=== PATIENT | male | born 1945 | race Caucasian/White ===

== ENCOUNTER 2022-09-01 13:01 | Outpatient (AMB) | payer MEDICARE, SELFPAY ==
[2022-09-01 13:26] VITALS: BP 128/60; PULSE 66; O2SAT 99; BMI 26.9
--- NOTE | 2022-09-01 13:26 | A.OFFVIS_ITS ---
Intake Vital Signs 09/01/22 13:26 Height 5 ft 6 in Weight 166 lb 7.184 oz BMI 26.9 BP 128/60 Blood Pressure Location Lt brachial Position Sitting Pulse 66 Pulse Source Pulse Oximeter Pulse Oximetry (%) 99 Oxygen Delivery Method Room Air Intake Visit Reasons: Abnormal CT Chest Insurance Representative Required: No Allergies mepolizumab [From Nucala] Allergy (Severe, Verified 09/01/22 13:29) Shingles HPI HPI Comments History of Present Illness Details The patient is here for a pulmonary evaluation. The patient is a 77-year-old gentleman with a previous history of eosinophilic granulomatosis with polyangiitis, initially was diagnosed at [facility] he was admitted to the hospital. Not clear if he had a biopsy proving condition. The patient was placed on prednisone responded very well. He can on long-term prednisone since then. His electronic health records specialist retired and now he was re-evaluated by Pulmonary. He did have a CT scan of the chest sometime in 2019 and then a repeat CT scan in 2022. The patient does have evidence of pulmonary fibrosis and no evidence of any pneumonitis. This is based on the report will look at the CT scans myself as well once they are available. He has been maintained on prednisone 15 mg alternating with 10 mg every other day. This dose has been the lowest dose that he has been on. Once he cuts down he typically develops multiple elements from the cutting down the prednisone. She was recommended to stop the prednisone altogether. He had reserve a shins without because is been on it for years. The patient came in to be evaluated for that reason. During our visit the patient did have a is walking oximetry he did very good maintaining a pulse ox of 98%. [facility] Medical History (Updated 09/01/22 @ 23:15 by Johnson Willingham MD) ILD (interstitial lung disease) Pulmonary fibrosis Steroid dependence Social History (Updated 09/01/22 @ 13:33 by DAKOTA Hinds) Patient Tobacco Use Status: Former Tobacco user Tobacco use type: Cigar Years Smoked: 10 Years Review of Systems Const Denies fatigue, Denies fever(s) and Denies headache(s) Eyes Reports change in vision ENT Denies headache(s) Card Denies chest pain and Denies dyspnea on exertion Resp Denies dyspnea on exertion and Denies wheezing GI Reports no additional complaints Musc Reports myalgias Skin/Breast Denies rash Neuro Denies headache(s) Endo Denies fatigue Juan/Lymph Denies easy bleeding and Denies easy bruising Aller/Immun Denies wheezing Physical Exam Vital Signs: Last Vital Signs Pulse 66 09/01/22 13:26 BP 128/60 09/01/22 13:26 Pulse Ox 99 09/01/22 13:26 Oxygen Delivery Method Room Air 09/01/22 13:26 BMI result Body Mass Index 26.9 Const General: comfortable HEENT Head: Yes normal to inspection Neck Neck: Yes supple Chest Chest palpation & inspection: normal inspection of the chest Resp Effort & Inspection: normal respiratory effort Auscultation: rales bilateral at the base and diminished lung sounds Cardio Rate: regular rate Rhythm: regular rhythm Heart sounds: S1 normal heart sound present and S2 normal heart sound present GI Palpation (GI): Soft to palpation Skin General skin exam: no rashes or lesions noted Extrem General: Yes no clubbing, cyanosis or edema Assessment & Plan Assessment & Plan (1) ILD (interstitial lung disease): Code(s): J84.9 - Interstitial pulmonary disease, unspecified (2) Pulmonary fibrosis: Code(s): J84.10 - Pulmonary fibrosis, unspecified (3) Steroid dependence: Code(s): F19.20 - Other psychoactive substance dependence, uncomplicated Plan Will slowly taper prednisone down to 10mg daily DAVID as needed PFTs Will need to review recent CT chest from [facility] F/U 2-3 months Medications: New prednisone 4 mg (4 x 1 mg) PO DAILY 30 days 120 tabs 6RF Coding Level of Care Code New Pt Level 4 (53131) Diagnoses ILD (interstitial lung disease) J84.9 Pulmonary fibrosis J84.10 Steroid dependence F19.20 Time Spent (min) 40
== END 2022-09-01 14:04 | disposition home or self-care (01) ==
PROVIDERS: PCP Internal Medicine; Visit Provider Hospitalist
DX: J84.9 Interstitial pulmonary disease, unspecified (principal); J84.10 Pulmonary fibrosis, unspecified; F19.20 Other psychoactive substance dependence, uncomplicated
CPT/HCPCS: 99204

== ENCOUNTER → 2022-09-01 13:01 | Outpatient (BNVA) | payer MEDICARE, SELFPAY | PROVIDERS: PCP Internal Medicine; Visit Provider Hospitalist | DX: J84.9 Interstitial pulmonary disease, unspecified (principal); J84.10 Pulmonary fibrosis, unspecified; F19.20 Other psychoactive substance dependence, uncomplicated | CPT/HCPCS: 99202 ==

== ENCOUNTER 2022-10-17 12:55 | Outpatient (REF) | payer MEDICARE, SELFPAY ==
--- NOTE | 2022-10-17 | PFT_ITS ---
INDICATION: Dyspnea, question interstitial lung disease. SPIROMETRY: FEV1 to FVC of 77% with an FEV1 of 1.93 L, which is 78% predicted and an FVC of 2.49 L, which is 72% predicted. No significant response to bronchodilators noted. Maximum voluntary ventilation 69% predicted. LUNG VOLUMES: Total lung capacity 67% predicted with an expiratory reserve volume of 25% predicted. DIFFUSION CAPACITY: DLCO of 59% predicted. COMPARISONS: None. INTERPRETATION: No obstructive ventilatory defects. No significant response to bronchodilators noted. There is a mild decrease in maximum voluntary ventilation secondary to likely deconditioning, although cannot rule out neuromuscular conditions. Lung volumes do demonstrate a restrictive ventilatory defect consistent with mild restrictive lung disease. This could be secondary to underlying neuromuscular conditions and/or parenchymal lung conditions. There is a mild to moderate diffusion impairment as well. Clinical correlation warranted. MD OSMAN Tolentino/MODL / [phone]
== END 2022-10-17 12:56 | disposition home or self-care (01) ==
LOC: HO.RESP 12:55
PROVIDERS: PCP Internal Medicine; Visit Provider Hospitalist
DX: R06.00 Dyspnea, unspecified (principal)
CPT/HCPCS: 94010; 94727; 94729

== ENCOUNTER → 2022-10-17 13:15 | Outpatient (BNV) | payer MEDICARE, SELFPAY | PROVIDERS: PCP Internal Medicine; Visit Provider Hospitalist | DX: R06.09 Other forms of dyspnea (principal) | CPT/HCPCS: 94060; 94727; 94729 ==

== ENCOUNTER 2022-11-25 10:49 | Outpatient (AMB) | payer MEDICARE, SELFPAY ==
--- NOTE | 2022-11-25 11:06 | A.OFFVIS_ITS ---
Intake Vital Signs 11/25/22 11:08 Height 5 ft 6 in Weight 165 lb BMI 26.6 BP 128/60 Blood Pressure Location Lt brachial Position Sitting Pulse 75 Pulse Source Pulse Oximeter Pulse Oximetry (%) 98 Oxygen Delivery Method Room Air Intake Visit Reasons: Abnormal CT Chest Weight Analyst Required: No Allergies mepolizumab [From Nucala] Allergy (Severe, Verified 11/25/22 11:10) Shingles HPI HPI Comments History of Present Illness Details The patient is a 77-year-old gentleman with a previous history of eosinophilic granulomatosis with polyangiitis, initially was diagnosed at [facility] he was admitted to the hospital. Not clear if he had a biopsy proving condition. The patient was placed on prednisone responded very well. He can on long-term prednisone since then. His venue manager retired and now he was re-evaluated by Pulmonary. He did have a CT scan of the chest sometime in 2019 and then a repeat [address] scan in 2022. The patient does have evidence of pulmonary fibrosis and no evidence of any pneumonitis. This is based on the report will look at the CT scans myself as well once they are available. He has been maintained on prednisone 15 mg alternating with 10 mg every other day. This dose has been the lowest dose that he has been on. Once he cuts down he typically develops multiple elements from the cutting down the prednisone. She was recommended to stop the prednisone altogether. He had reserve a shins without because is been on it for years. The patient came in to be evaluated for that reason. During our visit the patient did have a is walking oximetry he did very good maintaining a pulse ox of 98%. 11/25/2022 the patient is here for a pulm onary follow-up visit. Overall the patient has been doing well. He did try to cut down the prednisone below 15 down to 10 mg daily. But, he became very symptomatic and could not tolerated. Therefore I did switch him to a higher dose. He did well on the 15 mg alternating with 10 mg. Therefore he can continue with that plan. At some point he can also consider 12.5 mg daily. His lungs the patient does not require up to 20 mg we can avoid steroid sparing agents. The patient will follow up with his primary care doctor regarding bone density testing. The patient already likely has a component of secondary adrenal insufficiency making it very likely that he needs to stay on the prednisone. We did review his pulmonary function studies. He does have a [id number] restrictive process due to the interstitial lung disease. This is worse than when he had a PFT back in 2019. We also did look is CT scan that he had back over the summer of 2022 demonstrating reticular changes and scarring primarily around the periphery of the lungs and also at the bases. No evidence of any pneumonitis which is reassuring. He needs to start exercising more regularly. We did talk about that. The patient will continue with current respiratory regimen will follow-up sometime in June 2023. Illicit some new symptoms arise he can always call for an earlier assessment. [facility] Medical History (Updated 09/01/22 @ 23:15 by Johnson Willingham MD) Steroid dependence Pulmonary fibrosis ILD (interstitial lung disease) Social History (Updated 09/01/22 @ 13:33 by DAKOTA Hinds) Patient Tobacco Use Status: Former Tobacco user Tobacco use type: Cigar Years Smoked: 10 Years Review of Systems Const Denies fatigue, Denies fever(s) and Denies headache(s) Eyes Reports change in vision ENT Denies headache(s) Card Denies chest pain and Denies dyspnea on exertion Resp Denies dyspnea on exertion and Denies wheezing GI Reports no additional complaints Musc Reports myalgias Skin/Breast Denies rash Neuro Denies headache(s) Endo Denies fatigue Juan/Lymph Denies easy bleeding and Denies easy bruising Aller/Immun Denies wheezing Physical Exam Vital Signs: Last Vital Signs Pulse 75 11/25/22 11:08 BP 128/60 11/25/22 11:08 Pulse Ox 98 11/25/22 11:08 Oxygen Delivery Method Room Air 11/25/22 11:08 BMI result Body Mass Index 26.6 Const General: comfortable HEENT Head: Yes normal to inspection Neck Neck: Yes supple Chest Chest palpation & inspection: normal inspection of the chest Resp Effort & Inspection: normal respiratory effort and pursed lip breathing Auscultation: rales bilateral at the base and diminished lung sounds Cardio Rate: regular rate Rhythm: regular rhythm Heart sounds: S1 normal heart sound present and S2 normal heart sound present GI Palpation (GI): Soft to palpation Skin General skin exam: no rashes or lesions noted Extrem General: Yes no clubbing, cyanosis or edema Assessment & Plan Assessment & Plan (1) ILD (interstitial lung disease): Code(s): J84.9 - Interstitial pulmonary disease, unspecified (2) Pulmonary fibrosis: Code(s): J84.10 - Pulmonary fibrosis, unspecified (3) Steroid dependence: Code(s): F19.20 - Other psychoactive substance dependence, uncomplicated Plan continue alternating 15mg/10mg Prednisone. Consider 12.5mg daily DAVID as needed Start on line pulmonary rehab Bone density test as per PCP F/U 6-8 months Medications: New prednisone 15 mg (3 x 5 mg) PO DAILY 30 days 90 tabs 11RF Coding Level of Care Code Est Pt Level 4 (64981) Diagnoses ILD (interstitial lung disease) J84.9 Pulmonary fibrosis J84.10 Steroid dependence F19.20 Time Spent (min) 18
[2022-11-25 11:08] VITALS: BP 128/60; PULSE 75; O2SAT 98; BMI 26.6
== END 2022-11-25 11:41 | disposition home or self-care (01) ==
PROVIDERS: PCP Internal Medicine; Visit Provider Hospitalist
DX: J84.9 Interstitial pulmonary disease, unspecified (principal); J84.10 Pulmonary fibrosis, unspecified; F19.20 Other psychoactive substance dependence, uncomplicated
CPT/HCPCS: 99214

== ENCOUNTER → 2022-11-25 10:49 | Outpatient (BNVA) | payer MEDICARE, SELFPAY | PROVIDERS: PCP Internal Medicine; Visit Provider Hospitalist | DX: J84.10 Pulmonary fibrosis, unspecified (principal); F19.20 Other psychoactive substance dependence, uncomplicated | CPT/HCPCS: 99212 ==

== ENCOUNTER 2024-04-15 12:54 | Outpatient (AMB) | payer MEDICARE, SELFPAY ==
[2024-04-15 13:16] VITALS: BP 120/72; PULSE 81; O2SAT 100
--- NOTE | 2024-04-15 13:16 | MHC.OFFVIS ---
Vital Signs 04/15/24 13:16 Height 5 ft 6 in BMI Reason not done Patient refused/unable BP 120/72 Blood Pressure Location Rt brachial Position Sitting Pulse 81 Pulse Source Pulse Oximeter Pulse Oximetry (%) 100 Oxygen Delivery Method Room Air Intake Visit Reasons: dyspnea Allergies mepolizumab [From Nucala] Allergy (Severe, Verified 04/15/24 13:19) Shingles HPI Comments Details: The patient is a 78-year-old gentleman with a previous history of eosinophilic granulomatosis with polyangiitis, initially was diagnosed at [facility] he was admitted to the hospital. Not clear if he had a biopsy proving condition. The patient was placed on prednisone responded very well. He can on long-term prednisone since then. His mba intern retired and now he was re-evaluated by Pulmonary. He did have a CT scan of the chest sometime in 2019 and then [address] repeat [address] scan in 2022. The patient does have evidence of pulmonary fibrosis and no evidence of any pneumonitis. This is based on the report will look at the CT scans myself as well once they are available. He has been maintained on prednisone 15 mg alternating with 10 mg every other day. This dose has been the lowest dose that he has been on. Once he cuts down he typically develops multiple elements from the cutting down the prednisone. She was recommended to stop the prednisone altogether. He had reserve a shins without because is been on it for years. The patient came in to be evaluated for that reason. During our visit the patient did have a is walking oximetry he did very good maintaining a pulse ox of 98%. 11/25/2022 the patient is here for a pulmonary follow-up visit. Overall the patient has been doing well. He did try to cut down the prednisone below 15 down to 10 mg daily. But, he became very symptomatic and could not tolerated. Therefore I did switch him to a higher dose. He did well on the 15 mg alternating with 10 mg. Therefore he can continue with that plan. At some point he can also consider 12.5 mg daily. His lungs the patient does not require up to 20 mg we can avoid steroid sparing agents. The patient will follow up with his primary care doctor regarding bone density testing. The patient already likely has a component of secondary adrenal insufficiency making it very likely that he needs to stay on the prednisone. We did review his pulmonary function studies. He does have a [id number] restrictive process due to the interstitial lung disease. This is worse than when he had a PFT back in 2019. We also did look is CT scan that he had back over the summer of 2022 demonstrating reticular changes and scarring primarily around the periphery of the lungs and also at the bases. No evidence of any pneumonitis which is reassuring. He needs to start exercising more regularly. We did talk about that. The patient will continue with current respiratory regimen will follow-up sometime in June 2023. Illicit some new symptoms arise he can always call for an earlier assessment. 04/15/2024 the patient is here for a pulmonary follow-up visit. The patient has been having significant pain issues back pain musculoskeletal discomfort. He had become significantly depressed and had been having suicidal ideations at some point. He has been upset because he would like to get some pain management. He has been taking gabapentin addition to Tylenol on a regular basis. He has also been taking the prednisone that he has use chronically for the last 15 years. We did talk about decreasing the prednisone during the last visit but he has been lost to follow-up for a couple years. She is still on 20 mg daily. Will plan to go down by 1 mg every month. Hopefully we can get him down to 18 mg for his next follow-up in a couple months. In the meantime will go ahead and increase his gabapentin. He will have chest x-rays and also back x-rays to see if there is anything that can be done. He will benefit from pain management evaluation to see if this anything new that can be provided to alleviate his discomfort. [facility] Medical History (Updated 04/17/24 @ 10:42 by Johnson Willingham MD) Back pain Steroid dependence Pulmonary fibrosis ILD (interstitial lung disease) Social History Patient Tobacco Use Status: Former Tobacco user Tobacco use type: Cigar Years Smoked: 10 Years Review of Systems Const Denies fatigue, Denies fever(s) and Denies headache(s) Eyes Reports change in vision ENT Denies headache(s) Card Denies chest pain and Denies dyspnea on exertion Resp Denies dyspnea on exertion and Denies wheezing GI Reports no additional complaints Musc Reports abnormal gait, Reports back pain, Reports myalgias and Reports radiating pain into limb Skin/Breast Denies rash Neuro Reports abnormal gait and Denies headache(s) Psych Reports depression Endo Denies fatigue Juan/Lymph Denies easy bleeding and Denies easy bruising Aller/Immun Denies wheezing Physical Exam Vital Signs: Last Vital Signs Pulse 81 04/15/24 13:16 BP 120/72 04/15/24 13:16 Pulse Ox 100 04/15/24 13:16 Oxygen Delivery Method Room Air 04/15/24 13:16 Const General: comfortable HEENT Head: Yes normal to inspection Neck Neck: Yes supple Chest Chest palpation & inspection: normal inspection of the chest Resp Effort & Inspection: normal respiratory effort Auscultation: rales bilateral at the base and diminished lung sounds Cardio Rate: regular rate Rhythm: regular rhythm Heart sounds: S1 normal heart sound present and S2 normal heart sound present GI Palpation (GI): Soft to palpation Skin General skin exam: no rashes or lesions noted Extrem General: Yes no clubbing, cyanosis or edema Assessment & Plan Assessment & Plan (1) ILD (interstitial lung disease): Code(s): J84.9 - Interstitial pulmonary disease, unspecified Category: Medical (2) Pulmonary fibrosis: Code(s): J84.10 - Pulmonary fibrosis, unspecified Category: Medical (3) Steroid dependence: Code(s): F19.20 - Other psychoactive substance dependence, uncomplicated Category: Medical (4) Back pain: Code(s): M54.9 - Dorsalgia, unspecified Category: Medical Qualifiers: Back pain location: back pain in unspecified location Chronicity: chronic Back pain laterality: unspecified Qualified Code(s): M54.9 - Dorsalgia, unspecified; G89.29 - Other chronic pain Plan continue prednisone 20mg->decrease by 1mg every 3-4 weeks Pain management referral CXR back xrays Increase Gabapentin DAVID as needed F/U 3 months Orders: Orders XR lumbar spine 2-3V 04/15/24 J84.10 - Pulmonary fibrosis, unspecified, J84.9 - Interstitial pulmonary disease, unspecified, M54.9 - Dorsalgia, unspecified XR thoracic spine 3V 04/15/24 M54.9 - Dorsalgia, unspecified XR cervical spine 2V 04/15/24 M54.9 - Dorsalgia, unspecified XR chest 2V 04/15/24 J84.9 - Interstitial pulmonary disease, unspecified Referrals Pain Management Referral M54.9 - Dorsalgia, unspecified Medications: New prednisone 4 mg (4 x 1 mg) PO DAILY 120 tabs 3RF 30 days gabapentin 600 mg (2 x 300 mg) PO TID 180 caps 5RF 30 days prednisone 15 mg (3 x 5 mg) PO DAILY 90 tabs 11RF 30 days Coding Level of Care Code Est Pt Level 4 (72146) Complex EM visit Add On G2211 Diagnoses ILD (interstitial lung disease) J84.9 Pulmonary fibrosis J84.10 Steroid dependence F19.20 Chronic back pain, unspecified back location, unspecified back pain laterality M54.9; G89.29 Back pain location: back pain in unspecified location Chronicity: chronic Back pain laterality: unspecified Time Spent (min) 17
--- OUTSIDE RECORDS SUMMARY | 2024-04-15 13:25 | XMS_ITS | Clinical Summary ---
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 Ordering Clinician Indication Dosage Frequency Signature (SIG) Comments Components calcium 1200mg vitamin d 25 mq 1200 2023-02 00:00: 00 Yes [id number] 1 TAB DAILY 1 TAB DAILY (route: BY MOUTH) Med Classific ation: ELECTROLY LEATHA/VITAM INS gabapentin 300 mg capsule 2023-02 00:00: 00 02-24 23:59 :00 No [id number] 300 capsule 3 TIMES A WEEK 300 capsule 3 TIMES A WEEK (route: oral) Med Classific ation: Central Nervous System Agents Glucosamine Chondroit Complx Advan 750 mg-100 mg-125 mg-1.65 mg tablet 2023-02 00:00: 00 02-24 23:59 :00 No [id number] 750 mg DAILY 750 mg DAILY (route: oral) Med Classific ation: Alternati ve Therapy lisinopril 2.5 mg tablet 2023-02 00:00: 00 Yes [id number] 2.5 mg DAILY 2.5 mg DAILY (route: oral) Med Classific ation: Cardiovas cular Therapy Agents montelukast 10 mg tablet 2023-02 00:00: 00 Yes [id number] 10 mg BEDTIME 10 mg BEDTIME (route: oral) Med Classific ation: Respirato ry Therapy Agents prednisone 10 mg tablet 2023-02 00:00: 00 Yes [id number] 10 mg DAILY 10 mg DAILY (route: oral) Med Classific ation: Endocrine PreserVisio n AREDS 2 Plus Multivit 200 mcg-15 mcg-5 mg-1 mg capsule 2023-02 00:00: 00 Yes [id number] 200 mcg DAILY 200 mcg DAILY (route: oral) Med Classific ation: Electroly te Balance-N utritiona l Products simvastatin 40 mg tablet 2023-02 00:00: 00 02-24 23:59 :00 No [id number] 14 mg BEDTIME 14 mg BEDTIME (route: oral) Med Classific ation: Cardiovas cular Therapy Agents terazosin 1 mg capsule 2023-02 00:00: 00 Yes [id number] 1 mg BEDTIME 1 mg BEDTIME (route: oral) Med Classific ation: Cardiovas cular Therapy Agents gabapentin 300 mg capsule 2023-02 00:00: 00 Yes [id number] 1 capsule 3 TIMES DAILY 1 capsule 3 TIMES DAILY (route: oral) Med Classific ation: Central Nervous System Agents simvastatin 40 mg tablet 2023-02 00:00: 00 Yes [id number] 1 tablet BEDTIME 1 tablet BEDTIME (route: oral) Med Classific ation: Cardiovas cular Therapy Agents Immunizations Ordered Immunization Name Filled Immunization Name Date Status Comments Refusal Reason COVID BOOSTER, COVID BOOSTER 2023-11-24 00:00:00 INFLUENZA, LAIV (LIVE VIRUS) 2023-11-24 00:00:00 Vital Signs Vital Name Observation Time Observation Value Commen ts Temperature 2024-04-11 16:02:00.000 96.4 [degF] Temperature 2024-04-06 15:57:00.000 99.2 [degF] Pulse 2024-04-11 16:02:00.000 68 /min Pulse 2024-04-06 15:57:00.000 92 /min O2 Saturation (%) 2024-04-11 16:04:00.000 98 % O2 Saturation (%) 2024-04-06 15:58:00.000 97 % Respirations 2024-04-11 16:02:00.000 18 /min Respirations 2024-04-06 15:57:00.000 22 /min Systolic Blood Pressure 2024-04-11 16:02:00.000 98 mm[ Hg] Systolic Blood Pressure 2024-04-06 16:00:00.000 102 mm [Hg] Diastolic Blood Pressure 2024-04-11 16:02:00.000 60 mm [Hg] Diastolic Blood Pressure 2024-04-06 16:00:00.000 80 mm [Hg] Plan of Treatment Planned Activity Planned Date Details Comments Future Scheduled Test SKILLED NU RSE TO EVALUATE PATIENT, IDENTIFY PRIMARY AND CO-MORBID CONDITIONS CODED PER CODING GUIDELINES, AND DEVELOP PATIENT SPECIFIC PLAN OF CARE THAT INCLUDES PATIENT GOAL FOR HOME HEALTH. [code = SKILLED NURSE TO EVALUATE PATIENT, IDENTIFY PRIMARY AND CO-MORBID CONDITIONS CODED PER CODING GUIDELINES, AND DEVELOP PATIENT SPECIFIC PLAN OF CARE THAT INCLUDES PATIENT GOAL FOR HOME HEALTH.] Future Scheduled Test SKILLED NU RSE TO O/A OF PATIENTS MENTAL/BEHAVIORAL STATUS, ASSESS VITAL SIGNS WEEKLY ALLOW 2 PRNS FOR MEDICATION MANAGEMENT. [code = SKILLED NURSE TO O/A OF PATIENTS MENTAL/BEHAVIORAL STATUS, ASSESS VITAL SIGNS WEEKLY ALLOW 2 PRNS FOR MEDICATION MANAGEMENT.] Future Scheduled Test SKILLED NU RSE FOR O/A OF GENERAL HEALTH STATUS OF PAIN, CARDIAC, RESPIRATORY, GASTROINTESTINAL, GENITOURINARY, SKIN, NEUROLOGIC, ENDOCRINE SYSTEMS TO IDENTIFY CHANGES ASSOCIATED WITH EXACERBATION FOR EARLY INTERVENTION OF COMPLICATIONS WEEKLY. [code = SKILLED NURSE FOR O/A OF GENERAL HEALTH STATUS OF PAIN, CARDIAC, RESPIRATORY, GASTROINTESTINAL, GENITOURINARY, SKIN, NEUROLOGIC, ENDOCRINE SYSTEMS TO IDENTIFY CHANGES ASSOCIATED WITH EXACERBATION FOR EARLY INTERVENTION OF COMPLICATIONS WEEKLY.] Future Scheduled Test SKILLED NU RSE FOR O/A AND SKILLED TEACHING RELATED TO MANAGEMENT OF DEPRESSIVE SYMPTOMS AND/OR DEPRESSION. SN TO REPORT SIGNIFICANT CHANGE IN DEPRESSIVE SYMPTOMS TO CLINICAL PROVIDER FOR EARLY INTERVENTION. [code = SKILLED NURSE FOR O/A AND SKILLED TEACHING RELATED TO MANAGEMENT OF DEPRESSIVE SYMPTOMS AND/OR DEPRESSION. SN TO REPORT SIGNIFICANT CHANGE IN DEPRESSIVE SYMPTOMS TO CLINICAL PROVIDER FOR EARLY INTERVENTION.] Future Scheduled Test SKILLED NU RSE FOR O/A AND SKILLED TEACHING RELATED TO ALTERED SKIN INTEGRITY . LEFT HEEL CLOSED WOUND/? PRESSURE ULCER. [code = SKILLED NURSE FOR O/A AND SKILLED TEACHING RELATED TO ALTERED SKIN INTEGRITY . LEFT HEEL CLOSED WOUND/? PRESSURE ULCER.] Future Scheduled Test SKILLED NU RSE TO REVIEW PATIENT MEDICATIONS. INSTRUCT PATIENT/CAREGIVER ON MONITORING OF EFFECTIVENESS, ADVERSE DRUG REACTIONS, SIDE EFFECTS OF ALL MEDICATIONS (PRESCRIPTION/-OTC), AND HOW AND WHEN TO REPORT PROBLEMS. [code = SKILLED NURSE TO REVIEW PATIENT MEDICATIONS. INSTRUCT PATIENT/CAREGIVER ON MONITORING OF EFFECTIVENESS, ADVERSE DRUG REACTIONS, SIDE EFFECTS OF ALL MEDICATIONS (PRESCRIPTION/-OTC), AND HOW AND WHEN TO REPORT PROBLEMS.] Future Scheduled Test SKILLED NU RSE TO ASSESS PATIENTS PSYCHOSOCIAL STATUS TO IDENTIFY POTENTIAL ISSUES THAT MAY COMPLICATE THE PROVISION OF THE PLAN OF CARE INCLUDING THE PATIENTS ABILITY TO ACCESS COMMUNITY RESOURCES AND PSYCHOSOCIAL SUPPORT SERVICES. [code = SKILLED NURSE TO ASSESS PATIENTS PSYCHOSOCIAL STATUS TO IDENTIFY POTENTIAL ISSUES THAT MAY COMPLICATE THE PROVISION OF THE PLAN OF CARE INCLUDING THE PATIENTS ABILITY TO ACCESS COMMUNITY RESOURCES AND PSYCHOSOCIAL SUPPORT SERVICES.] Future Scheduled Test SKILLED NU RSE WILL MAINTAIN SITUATIONAL AWARENESS FOR SAFETY AND WILL NOTIFY CLINICAL TEACHER COUNSELOR AND PHYSICIAN/PROVIDER WITH ANY CHANGE IN CONDITION. [code = SKILLED NURSE WILL MAINTAIN SITUATIONAL AWARENESS FOR SAFETY AND WILL NOTIFY CLINICAL TEACHER COUNSELOR AND PHYSICIAN/PROVIDER WITH ANY CHANGE IN CONDITION.] Goal Patient Goal - NOT TO UPSET MY FAMILY Goal 2024-04-01 Patient Goal - NOT TO UPSET MY FAMILY Goal Provider Goal - A PLAN OF CARE WILL BE ESTABLISHED THAT MEETS PATIENT'S ASSISTED NEEDS AND INCLUDES PATIENT GOAL FOR HOME HEALTH. Goal Provider Goal - ALTERED MENTAL/BEHAVIORAL STATUS WILL BE IDENTIFIED PROMPTLY AND INTERVENTION INITIATED QUICKLY TO MINIMIZE ASSOCIATED RISKS THROUGHOUT CERTIFICATION PERIOD. Goal Provider Goal - CHANGE IN GENERAL HEALTH STATUS WILL BE IDENTIFIED AND REPORTED TO PHYSICIAN FOR PROMPT INTERVENTION TO MINIMIZE ASSOCIATED RISKS THROUGHOUT CERTIFICATION PERIOD. Goal Provider Goal - PATIENT WILL REMAIN SAFE WITHOUT DECOMPENSATION IN DEPRESSIVE CONDITION, WHILE MAINTAINING OPTIMAL LEVEL OF MENTAL HEALTH AND WELL BEING THROUGHOUT CERTIFICATION PERIOD. Goal Provider Goal - PATIENT/CAREGIVER WILL VERBALIZE/DEMONSTRATE UNDERSTANDING OF TEACHING RELATED TO ALTERED SKIN INTEGRITY , AT LEFT HEEL SITE, BY END OF CERTIFICATION PERIOD. Goal Provider Goal - PATIENT/CAREGIVER WILL VERBALIZE UNDERSTANDING OF EDUCATION PROVIDED ON MEDICATIONS BY THE END OF THE CERTIFICATION PERIOD. Goal Provider Goal - PSYCHOSOCIAL NEEDS WILL BE IDENTIFIED AND PLAN IMPLEMENTED TO MINIMIZE RISK THROUGHOUT CERTIFICATION PERIOD. Goal Provider Goal - PATIENT WILL REMAIN SAFE IN THE COMMUNITY AND WILL BE FREE OF DANGER TO SELF AND OTHERS THROUGHOUT THE CERTIFICATION PERIOD. Progress Notes Progress Notes <paragraph>[Visit Date: 2024 by GUIDO LAI RN]:</paragraph><paragraph>SNV NOTE 2 : PATIENT HAD FOOT DOCTOR DR SEE VISIT HIM THIS PAST THURSDAY .HE DID HAVE 2 OF HIS NAILS TRIMMED. SHE DID NOT ADDRESS ISSUES WITH WOUNDS ON RIGHT HEEL OR ON TIP OF LEFT GREAT TOE. PATIENT STATES HE IS NOT HAPPY WITH HER A DOCTOR OVERALL AND IS LOOKING TO BE SEEN ELSEWHERE. THIS NURSE WILL CALL DR. OJEDA FOR REFERRAL TO [facility] PER HIS REQUEST AND HE STATES HE WILL OBTAIN TRANSPORTATION TO HAVE WOUND LOOKED AT. REVIEWED WITH PATIENT IMPORTANCE OF NO BAREFOOT WALKING KEEPING SKIN CLEAN DRY AND INTACT AND ADEQUATE MOISTURIZING OF AREA TO AVOID CRACKS AND DRYNESS WHICH MAY LEAD TO FURTHER WOUNDS OR COMPLICATIONS. REVIEWED AND EDUCATED ON ALL MEDICATIONS ORDERED IMPORTANCE OF COMPLIANCE WITH FOR DISEASE MANAGEMENT. PATIENT HAS BEEN COMPLIANT WITH P.O. MEDS SELF MANAGED. REVIEWED SAFE LIMITS OF EXTRA STRENGTH TYLENOL. PATIENT DOES TAKE ON A REGULAR BASIS FOR ARTHRITIC PAIN DOES NOT EXCEED 3220-4008 MG DAILY.</paragraph> Encounters Start Date/Time End Date/Time Encounter Type Admission Type Attending Clinicians Care Facility Care Department Encounter ID Discharge Date Discharge Status Discharge Condition Discharge Reason Percent Goals Met 2024-02-06 00:00:00 2024-06-04 00:00:00 Outpatient RECERTIFIC ATGUIDO [facility] [id number] 44.44
--- OUTSIDE RECORDS SUMMARY | 2024-04-15 13:25 | XMS_ITS | Clinical Summary ---
Author Organization [facility], Address [address] [place] [address] [place] [address] Phone Care Team Providers Care Patient Financial Services Coordinator Name Role Phone PhilhenriMachelle Fitzpatrick DO Primary Care Pro vider Allergies No known active allergies Medications albuterol HFA (Ventolin HFA) 108 (90 Base) MCG/ACT inhaler Comments: Filled Date: Mar 14 2016 12:00AM Patient Notes: USE 2 PUFFS BY MOUTH 4 TIMES A DAY NEEDED WHEEZING Duration: 7 Active budesonide-form oterol (SYMBICORT) 160-4.5 MCG/ACT inhaler INHALE 2 PUFFS TWICE A DAY 0 Active fluticasone (FLONASE) 50 MCG/ACT nasal spray Administer 2 sprays into each nostril 1 (one) time each day 0 Active lisinopril (PRINIVIL,ZESTR IL) 2.5 MG tablet Take 2.5 mg by mouth daily 0 Active montelukast (SINGULAIR) 10 MG tablet Take 10 mg by mouth at bed time 0 Active omeprazole (PriLOSEC) [address] capsule Take 20 mg by mouth 0 Active predniSONE (DELTASONE) 5 MG tablet TAKE 3 TABLETS BY MOUTH EVERY DAY J 45.30 0 Active simvastatin (ZOCOR) 40 MG tablet Take 40 mg by mouth every night 0 Active terazosin (HYTRIN) 1 MG capsule Take 1 mg by mouth every night 0 Active alendronate (FOSAMAX) 70 MG tablet TAKE 1 TABLET BY MOUTH ONE TIME PER WEEK FOR 90 DAYS 2 Active gabapentin (NEURONTIN) 300 MG capsule Take 300 mg by mouth every night 2 Active valACYclovir (VALTREX) 1 g tablet TAKE 1 TABLET BY MOUTH THREE TIMES DAILY FOR 7 DAYS 2 Active Active Problems Problem Noted Date Diagnosed Date Hypertension 02/22/2020 Chronic kidney disease stage 3 08/22/2019 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 disease due to hypertension 08/21 Immunizations Name Administration Dates Next Due Influenza Split High Dose Preservative Free IM 0 11/01/2019 Family History Medical History Relation Comments Hypertension Father Relation Status Comments Father Mother Social History Tobacco Use Types Packs/Day Years Used Date Smoking Tobacco: Former Cigarettes Q uit: 02/23/2013 Comments:Smoking History Inf o:Every day Alcohol Use Standard Drinks/Week Comments Yes 0 (1 standard drink = 0.6 oz pure alcohol) Alcoholic Drinks/day: 1-2 drinks per day Sex and Gender Information Value Date Recorded Sex Assigned at Not on file Legal Sex Male 4:30 PM EST Gender Identity Not on file Sexual Orientation Not on file Last Filed Vital Signs Vital Sign Reading Time Taken Comments Blood Pressure 144/66 07/13/2023 2:06 PM EDT Pulse - - Temperature - - Respiratory Rate - - Oxygen Saturation - - Inhaled Oxygen Concentration - - Weight 83.9 kg (185 lb) 08/09/2018 12:00 PM EDT Height 172.7 cm (5' 8 ) 08/09/2018 12:00 PM EDT Body Mass Index 28.13 08/09/2018 12:00 PM EDT Plan of Treatment Upcoming Encounters Date Type Department Care Team (Late st Contact Info) Description 07/11/2024 2:30 PM EDT Office Visit [facility], [address] [address] Henrique Black MD [address] [place] [address] Health Maintenance Due Date Last Done Comments Pneumococcal Vaccine: 65+ Years (1 of 2 - PCV) 1951 Influenza Vaccine (#1) 2023 0, 12/24/2018, 11/08/2009, Additional history exists Hepatitis B Vaccine Aged Out No longe r eligible based on patient's age to complete this topic Insurance MEDICARE [facility] Care Teams Patient Financial Services Coordinator Relationship Specialty Start Date End Date Machelle Bueno DO PCP - General Internal Medicine 01/13/22
== END 2024-04-15 13:57 | disposition home or self-care (01) ==
PROVIDERS: PCP Internal Medicine; Visit Provider Hospitalist
DX: J84.9 Interstitial pulmonary disease, unspecified (principal); J84.10 Pulmonary fibrosis, unspecified; F19.20 Other psychoactive substance dependence, uncomplicated; M54.9 Dorsalgia, unspecified; G89.29 Other chronic pain
CPT/HCPCS: 99214; G2211

== ENCOUNTER 2024-04-15 12:54 | Outpatient (REF) | payer MEDICARE, SELFPAY ==
--- NOTE | ~2024-04-15 | XR_ITS ---
CLINICAL HISTORY: M54.9 - Dorsalgia, unspecified 3 views thoracic spine Comparison: None Findings: Normal alignment. The lower thoracic spine is poorly evaluated on the lateral views. There is degenerative disc disease in the lower thoracic spine. There is scoliosis at the thoracolumbar junction. IMPRESSION: No acute findings. Degenerative changes. Limited evaluation of the lower thoracic spine. This document has been electronically signed by: Jun Alfonso MD on 04/18/2024 13:00:13
--- NOTE | ~2024-04-15 | XR_ITS ---
CLINICAL HISTORY: M54.9 - Dorsalgia, unspecified 4 views cervical spine Comparison: None Findings: Normal vertebral body alignment. No acute fractures or dislocation. There is multilevel degenerative disc disease and uncinate joint arthropathy particularly at the C3-4 through C5-6 levels. Prevertebral soft tissues within normal limits. IMPRESSION: There is multilevel degenerative disc disease and uncinate joint arthropathy particularly at the C3-4 through C5-6 levels. This document has been electronically signed by: Jun Alfonso MD on 04/18/2024 13:00:18
--- NOTE | ~2024-04-15 | XR_ITS ---
CLINICAL HISTORY: J84.9 - Interstitial pulmonary disease, unspecified 2 view chest x-ray Comparison: None Findings: There are low lung volumes with a mildly elevated right hemidiaphragm. There is colonic interposition. Small left effusion not excluded. Normal size heart. No acute fracture. IMPRESSION: 1. Low lung volumes with mildly elevated right hemidiaphragm. 2. Can not exclude small left effusion. This document has been electronically signed by: Jun Alfonso MD on 04/18/2024 12:56:32
--- NOTE | ~2024-04-15 | XR_ITS ---
CLINICAL HISTORY: J84.9 - Interstitial pulmonary disease, unspecified 3 views lumbar spine Comparison: None Findings: Normal vertebral body alignment. No acute fractures or dislocation. There is severe multilevel degenerative disc disease and marked dextroscoliosis. IMPRESSION: There is severe multilevel degenerative disc disease and marked dextroscoliosis. This document has been electronically signed by: Jun Alfonso MD on 04/18/2024 12:59:35
--- OUTSIDE RECORDS SUMMARY | 2024-04-15 14:25 | XMS_ITS | Clinical Summary ---
Author Organization [facility], Address [address] [place] [address] [place] [address] Phone Care Team Providers Care Factorer Name Role Phone PhilhenriMachelle Fitzpatrick DO Primary [...] Visit [facility], [address] [place] [address] Henrique Black MD [address] [address] Health Maintenance Due Date Last Done Comments Pneumococcal Vaccine: 65+ Years (1 of 2 - PCV) 1951 Influenza Vaccine (#1) 2023 0, 12/24/2018, 11/08/2009, Additional history exists Hepatitis B Vaccine Aged Out No longe r eligible based on patient's age to complete this topic Insurance MEDICARE [facility] Care Teams Factorer Relationship Specialty Start Date End Date Machelle Bueno DO PCP - General Internal Medicine 01/13/22
== END 2024-04-15 12:55 | disposition home or self-care (01) ==
LOC: HO.XRAY 12:54
PROVIDERS: PCP Internal Medicine; Visit Provider Hospitalist
DX: M54.9 Dorsalgia, unspecified (principal); J84.10 Pulmonary fibrosis, unspecified; J84.9 Interstitial pulmonary disease, unspecified; G89.29 Other chronic pain; F19.20 Other psychoactive substance dependence, uncomplicated
CPT/HCPCS: 71046; 72040; 72072; 72100; 99212

== ENCOUNTER → 2024-04-15 14:01 | Outpatient (BNV) | payer MEDICARE, SELFPAY | PROVIDERS: PCP Internal Medicine; Visit Provider Radiology Diagnostic Radiology | DX: M54.9 Dorsalgia, unspecified (principal); M50.30 Other cervical disc degeneration, unspecified cervical region; M51.369 Other intervertebral disc degeneration, lumbar region without mention of lumbar back pain or lower extremity pain; J84.9 Interstitial pulmonary disease, unspecified | CPT/HCPCS: 71046; 72040; 72072; 72100 ==

== ENCOUNTER 2024-05-02 13:46 | Outpatient (AMB) | payer MEDICARE, SELFPAY ==
--- NOTE | 2024-05-02 13:48 | MHC.OFFVIS ---
Vital Signs 05/02/24 13:50 Height 5 ft 6 in BMI Reason not done Patient refused/unable BP 123/58 L Blood Pressure Location Lt brachial Position Sitting Pulse 72 Pulse Source Pulse Oximeter Intake Visit Reasons: Dorsalgia, unspecified Intake Note: Pain today sitting 0/10, standing 8/10 Manager [employer] Required: No Accompanied by: Family/Other Allergies mepolizumab [From Nucala] Allergy (Severe, Verified 05/02/24 13:52) Shingles HPI HPI Dorsalgia, unspecified: Details: The patient is a 78-year-old male with prior history of chronic low back pain, former tobacco smoker, h/o compression fractures, lumbar degenerative disc disease, arthritis, lumbar scoliosis, presenting with chronic lower back pain and bilateral lower extremity edema and non-healing ulcers with suspected vascular insufficiency. The onset of the current episode of lower back pain began a year and a half ago, though it is part of a pattern of chronic pain that has persisted for 22 years, influenced by a history of severe scoliosis discovered during adolescence. The patient has not pursued surgical intervention for scoliosis but has experienced temporary relief from prior steroidal pain management and back bracing. Imaging studies are noted below and were discussed with patient and family today. Patient has attempted physical therapy at home 3 weeks ago with minimal relief. He reports good pain relief with epidural steroid injections through [facility]. Patient reports he was previously evaluated at [facility] but was deemed non-surgical for back pain. Pain interferes with his daily activities and functioning, severely limiting mobility, requiring a walker and electric cart, negatively affecting his sleep and quality of life. Denies any fever or chills, dizziness, shortness of breaths, chest pain, bladder or bowel dysfunction or saddle anesthesia. 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 He follows at [facility] services for pulmonary fibrosis and interstitial lung disease with long history of steroid dependence. The patient's primary concerns during this visit include acute issues with bilateral lower extremity edema and non healing foot ulcers, which are significantly more prominent in the right leg, leading to a non-healing ulcer on the heel and also open wounds on his tender left big toe. The potential for underlying vascular insufficiency is being evaluated at [facility] on 05/05/24 . The likelihood of painful sensory neuropathy further complicates ambulation and daily activities. - Affect: Pain significantly impacts mobility and necessitates use of assisting devices. - Analgesia: Currently using gabapentin and Tylenol; prior temporary relief from steroid injections. - Adverse Effects: None discussed from current medications. - Activities of Daily Living: Severely limited, requiring walkers and electric cart; unable to cook and minimal standing. - Aberrant Drug-Related Behaviors: None reported. Location: Chronic back pain, severe scoliosis, bilateral foot ulcers and edema Duration: Chronic pain for >22 years, for past 1.5 years Characteristics of symptom or complaint: Sharp, aching, burning, severe, radiating Aggravating or associated factors: Walking, standing, changing positions, movements Relieving factors: Rest, sitting, cold therapy, gabapentin, Tylenol Treatment: PT, TENS unit, chiropractor, cane, wheelchair, walker [facility] Medical History (Updated 05/02/24 @ 16:04 by MARGARET Borja) Lumbar degenerative disc disease Scoliosis of thoracolumbar spine Back pain Steroid dependence Pulmonary fibrosis ILD (interstitial lung disease) Social History Alcohol intake: current Alcohol intake frequency: holidays/special occasions only Patient Tobacco Use Status: Former Tobacco user Tobacco use type: Cigar Years Smoked: 10 Years Substance Use Type: Other Substance Use Type Other:: Edibles Review of Systems Const Details: - Musculoskeletal: Reports severe back pain. - Vascular: Reports significant bilateral lower extremity swelling. - Integumentary: Reports non-healing right heel and left big toe ulcer. - Neurological: Reports numbness and sensory neuropathy symptoms. All systems reviewed & are unremarkable except as noted in HPI and below Physical Exam Vital Signs: Last Vital Signs Pulse 72 05/02/24 13:50 BP 123/58 L 05/02/24 13:50 General: Appears afebrile. Alert and oriented. Mood and affect appropriate. Follows and participates in conversation appropriately. Respiratory effort is unlabored. No cough. Able to transition from sit to stand with assistance of family member. Unable to perform lumbar ROM due to pain. Positive painful facet loading bilaterally. - Musculoskeletal- Limited mobility; difficulty standing, requires use of walker and electric cart. - Vascular- Right lower extremity more swollen than left; non-healing ulcer on heel and left big toe. - Neurological- Sensation impaired on extremities; difficulty in standing unsupported. General: Yes no CVA tenderness Back/Spine/Pelvis Back: no CVA tenderness Cervical Spine: cervical muscular tenderness, pain with cervical ROM, No Cervical spine scars present and No Cervical spine tenderness Thoracic/Lumbar Spine: thoracic and lumbar spine normal to inspection, No Thoracic/lumbar spine scar(s), Lasegue's sign positive bilateral and diffuse, pain with thoraco-lumbar ROM, paraspinal muscle tenderness, thoraco-lumbar ROM limited, No thoracic spinal tenderness and lumbar spinal tenderness (L3-S1) Pelvis: no buttock tenderness Sacroiliac joints: bilaterally nontender Results Reviewed Results Reviewed: XR cervical spine 2V 04/18/24 Comparison: None Findings: Normal vertebral body alignment. No acute fractures or dislocation. There is multilevel degenerative disc disease and uncinate joint arthropathy particularly at the C3-4 through C5-6 levels. Prevertebral soft tissues within normal limits. IMPRESSION: There is multilevel degenerative disc disease and uncinate joint arthropathy particularly at the C3-4 through C5-6 levels. 3 views thoracic spine 04/18/24 Comparison: None Findings: Normal alignment. The lower thoracic spine is poorly evaluated on the lateral views. There is degenerative disc disease in the lower thoracic spine. There is scoliosis at the thoracolumbar junction. IMPRESSION: No acute findings. Degenerative changes. Limited evaluation of the lower thoracic spine. 3 views lumbar spine 04/18/24 Comparison: None Findings: Normal vertebral body alignment. No acute fractures or dislocation. There is severe multilevel degenerative disc disease and marked dextroscoliosis. IMPRESSION: There is severe multilevel degenerative disc disease and marked dextroscoliosis. Assessment & Plan Assessment & Plan (1) Scoliosis of thoracolumbar spine: Code(s): M41.9 - Scoliosis, unspecified Category: Medical (2) Lumbar degenerative disc disease: Code(s): M51.369 - Other intervertebral disc degeneration, lumbar region without mention of lumbar back pain or lower extremity pain Category: Medical (3) Chronic low back pain: Code(s): M54.50 - Low back pain, unspecified; G89.29 - Other chronic pain Category: Medical (4) Lumbar radiculopathy: Code(s): M54.16 - Radiculopathy, lumbar region Category: Medical (5) Lumbosacral spondylosis: Code(s): M47.817 - Spondylosis without myelopathy or radiculopathy, lumbosacral region Category: Medical Plan For axial low back pain, I have proposed proceeding with diagnostic bilateral L3-L4 DR L5 MBB with local and fluoroscopy to evaluate the response in arthritis-related back pain, pending insurance preauthorization and confirmation of positive nerve block outcomes. Expectations, risks and benefits were reviewed. Patient is aware he will be contacted to schedule this procedure. Long-term goals include improved pain management through potential radiofrequency ablation or neuromodulation. For lumbar radiculopathy and bilateral leg pain with neuropathy, MRI of the lumbar spine is placed to assess for neural integrity and compression and follow up on recent xray findings. Within the interim, other pain management options are under evaluation, paying particular attention to non-opioid therapies. Concomitant care for extensive bilateral lower extremity edema and ulceration awaits results of a scheduled vascular evaluation at [facility] [place]. Coordination with PT for functional support continues with home PT. All questions and concerns have been answered and patient/family agreed with the plan. Follow up after injections/MRI review and sooner as needed. Patient was informed and verbally consented to the use of an ambient scribe for clinic note documentation during this visit. Orders: Orders MR lumbar spine wo con Today G89.29 - Other chronic pain, M41.9 - Scoliosis, unspecified, M51.369 - Other intervertebral disc degeneration, lumbar region without mention of lumbar back pain or lower extremity pain, M54.16 - Radiculopathy, lumbar region, M54.50 - Low back pain, unspecified Patient Instructions: - Follow up as directed with the scheduled vascular evaluation at [facility] for assessment of lower extremity circulation. - A diagnostic lumbar medial branch block will be scheduled to evaluate its impact on lower back arthritis pain. - Maintain use of current mobility aids (walker, electric cart, cane and VNA support services). - Continue prescribed medications as previously advised, report any side effects or difficulties promptly. - Watch for signs of breakthrough pain or escalation in symptoms, seeking prompt evaluation. - Contact your healthcare provider promptly if you experience increased symptoms, such as pain, swelling, or unhealed areas. Coding Level of Care Code New Pt Level 4 (17797) Complex EM visit Add On G2211 Diagnoses Scoliosis of thoracolumbar spine M41.9 Lumbar degenerative disc disease M51.369 Chronic low back pain M54.50; G89.29 Lumbar radiculopathy M54.16 Lumbosacral spondylosis M47.817
[2024-05-02 13:50] VITALS: BP 123/58; PULSE 72
--- OUTSIDE RECORDS SUMMARY | 2024-05-02 15:35 | XMS_ITS | Clinical Summary ---
Author Organization Unknown Care Team Providers Care Safety Compliance Specialist Name Role Phone ZHEN OJEDA MD, KELLY Unavailable Unavailable JOELLE SANTOS, GUIDO Ochoa Unavailabl e Payers Payer Name Policy Type Policy Number Effective Date Expira tion Date MEDICARE - NGS IMELDA/MICHAELLE - PD [id number] Problems Condition Name Condition Details Condition Category [...] 25 mq 1200 2023-02 00:00: 00 Yes [id number] 1 TAB DAILY 1 TAB DAILY (route: BY MOUTH) Med Classific ation: ELECTROLY LEATHA/VITAM INS gabapentin 300 mg capsule 2023-02 00:00: 00 02-24 23:59 :00 No [id number] 300 capsule 3 TIMES A WEEK 300 capsule 3 TIMES A WEEK (route: oral) Med Classific ation: Central Nervous System Agents Glucosamine Chondroit Complx Advan 750 mg-100 mg-125 mg-1.65 mg tablet 2023-02 00:00: 00 02-24 23:59 :00 No [id number] 750 mg DAILY 750 mg DAILY (route: oral) Med Classific ation: Alternati ve Therapy lisinopril 2.5 mg tablet 2023-02 00:00: 00 Yes [id number] 2.5 mg DAILY 2.5 mg DAILY (route: oral) Med Classific ation: Cardiovas cular Therapy Agents montelukast 10 mg tablet 2023-02- 00:00: 00 Yes [id number] 10 mg BEDTIME 10 mg BEDTIME (route: oral) Med Classific ation: Respirato ry Therapy Agents prednisone 10 mg tablet 2023-02 00:00: 00 Yes [id number] 10 mg DAILY 10 mg DAILY (route: oral) Med Classific ation: Endocrine PreserVisio n AREDS 2 Plus Multivit 200 mcg-15 mcg-5 mg-1 mg capsule 2023-02- 00:00: 00 Yes [id number] 200 mcg DAILY 200 mcg DAILY (route: oral) Med Classific ation: Electroly te Balance-N utritiona l Products simvastatin 40 mg tablet 2023-02 00:00: 00 02-24 23:59 :00 No [id number] 14 mg BEDTIME 14 mg BEDTIME (route: oral) Med Classific ation: Cardiovas cular Therapy Agents terazosin 1 mg capsule 2023-02 00:00: 00 Yes [id number] 1 mg BEDTIME 1 mg BEDTIME (route: oral) Med Classific ation: Cardiovas cular Therapy Agents gabapentin 300 mg capsule 2023-02 00:00: 00 Yes [id number] 1 capsule 3 TIMES DAILY 1 capsule 3 TIMES DAILY (route: oral) Med Classific ation: Central Nervous System Agents simvastatin 40 mg tablet 2023-02 00:00: 00 Yes [id number] 1 tablet BEDTIME 1 tablet BEDTIME (route: oral) Med Classific ation: Cardiovas cular Therapy Agents SSD 1 % topical cream 04-29 00:00: 00 Yes [id number] Per instruc tions 2 TIMES DAILY Per instructio ns 2 TIMES DAILY (route: topical) Med Classific ation: Dermatolo gical Immunizations Ordered Immunization Name Filled Immunization Name Date Status Comments Refusal Reason COVID BOOSTER, COVID BOOSTER 2023-11-24 00:00:00 INFLUENZA, LAIV (LIVE VIRUS) 2023-11-24 00:00:00 Vital Signs Vital Name Observation Time Observation Value Commen ts Temperature 2024-04-29 13:53:00.000 99.3 [degF] Temperature 2024-04-25 14:58:00.000 98.1 [degF] Temperature 2024-04-18 14:18:00.000 98.8 [degF] Temperature 2024-04-11 16:02:00.000 96.4 [degF] Temperature 2024-04-06 15:57:00.000 99.2 [degF] Pulse 2024-04-29 13:53:00.000 63 /min Pulse 2024-04-25 14:58:00.000 84 /min Pulse 2024-04-18 14:18:00.000 51 /min Pulse 2024-04-11 16:02:00.000 68 /min Pulse 2024-04-06 15:57:00.000 92 /min O2 Saturation (%) 2024-04-29 13:54:00.000 93 % O2 Saturation (%) 2024-04-25 14:59:00.000 98 % O2 Saturation (%) 2024-04-18 14:21:00.000 98 % O2 Saturation (%) 2024-04-11 16:04:00.000 98 % O2 Saturation (%) 2024-04-06 15:58:00.000 97 % Respirations 2024-04-29 13:53:00.000 18 /min Respirations 2024-04-25 14:58:00.000 20 /min Respirations 2024-04-18 14:18:00.000 20 /min Respirations 2024-04-11 16:02:00.000 18 /min Respirations 2024-04-06 15:57:00.000 22 /min Systolic Blood Pressure 2024-04-29 13:53:00.000 100 mm [Hg] Systolic Blood Pressure 2024-04-25 14:59:00.000 122 mm [Hg] Systolic Blood Pressure 2024-04-18 14:21:00.000 100 mm [Hg] Systolic Blood Pressure 2024-04-11 16:02:00.000 98 mm[ Hg] Systolic Blood Pressure 2024-04-06 16:00:00.000 102 mm [Hg] Diastolic Blood Pressure 2024-04-29 13:53:00.000 60 mm [Hg] Diastolic Blood Pressure 2024-04-25 14:59:00.000 74 mm [Hg] Diastolic Blood Pressure 2024-04-18 14:21:00.000 56 mm [Hg] Diastolic Blood Pressure 2024-04-11 16:02:00.000 [...] AWARENESS FOR SAFETY AND WILL NOTIFY CLINICAL JOURNEYMAN TOOL AND DIE MAKER AND PHYSICIAN/PROVIDER WITH ANY CHANGE IN CONDITION. [code = SKILLED NURSE WILL MAINTAIN SITUATIONAL AWARENESS FOR SAFETY AND WILL NOTIFY CLINICAL JOURNEYMAN TOOL AND DIE MAKER AND PHYSICIAN/PROVIDER WITH ANY CHANGE IN CONDITION.] Goal Patient Goal - NOT TO UPSET MY FAMILY Goal 2024-04-01 Patient Goal - NOT TO UPSET MY FAMILY Goal Provider Goal - A PLAN OF CARE WILL BE ESTABLISHED THAT MEETS PATIENT'S RETIREMENT NEEDS AND INCLUDES PATIENT GOAL FOR HOME [...] Date: 2024 by GUIDO LAI RN]:</paragraph><paragraph>SNV NOTE 3 7 25: PATIENT AWAKE ALERT AND ORIENTED SITTING IN RECLINER WHEN NURSE ARRIVED LEGS ELEVATED. CONTINUES TO COMPLAIN OF CHRONIC PAIN ARTHRITIC IN NATURE ALL OVER GOING TO PAIN CLINIC WHICH IS NEW REFERRAL FOR HIM THIS THURSDAY [facility]. PATIENT CONTINUES TO USE PREDNISONE 19 MG DAILY AND GABAPENTIN 600 MG P.O. B.I.D. PER DOCTOR ABENA SILVA WHO IS HIS SAND CUTTER WHO RECENTLY INCREASED FOR PATIENT AT LAST VISIT A FEW WEEKS AGO HE STATES. PATIENT ALSO SAW DOCTOR BHAVNA PCP LAST WEEK PCP REGARDING UNHEALED AREAS THAT ARE CLOSED ON LEFT HEEL AND TIP OF LEFT GREAT TOE ... DOCTOR PRESCRIBED SILVADENE 1% TOPICAL CREAM TO APPLY B.I.D. TO AREAS PATIENT HAS BEEN DOING SO WITH NO EFFECT. HAS UPCOMING APPOINTMENT PER PCP FOR REFERRAL TO VASCULAR SURGEON TO LOOK AT LEFT FOOT WITH UNHEALED WOUNDS/ULCERATIONS. PATIENT STATES SITES ARE BECOMING MORE TENDER AND PAINFUL TO TOUCH. REMAIN WITH BROWN ESCHAR AND CLOSED. NO SIGN OF INFECTION. PATIENT REPORTS PSYCHIATRIC STATUS STABLE DOES HAVE CONTINUED SUPPORTIVE FAMILY MEMBERS AND FRIENDS WHO VISIT AND CHECK ON HIM DAILY OR MORE. DENIES ANY SIGNS AND SYMPTOMS OF SUICIDAL IDEATION OR INTENT PATIENT IS WELL GROOMED STATES APPETITE WITHIN NORMAL LIMITS SLEEP PATTERN TENDS TO BE DIFFICULT DUE TO URINARY FREQUENCY AT NIGHT ASSOCIATED ALSO WITH PAIN RELATED TO MOVEMENT .PATIENT COMPLIANT WITH ALL MEDICATIONS SELF MANAGED WITH MED GAMING FLOOR SUPERVISOR. PATIENT'S SAFETY MAINTAINED THERE HAVE BEEN NO FALLS OR INJURIES HAS BEEN TRYING TO DO EXERCISES PRESCRIBED FOR HIM STATUS POST PHYSICAL THERAPY DUE TO PAIN IT IS HARD TO KEEP UP WITH HE STATES. REINFORCED WITH PATIENT SAFETY IN HOME IMPORTANCE OF ASSISTIVE DEVICE AT ALL TIMES WALKER AND USE OF MOTORIZED CHAIR IN HOME TO GO UP AND DOWN STAIRS. ALSO REVIEWED WITH PATIENT CRISIS NUMBER TO USE P.R.N. PATIENT WITH VERBAL UNDERSTANDING. REVIEWED AND REINFORCED AND EDUCATED ON ALL MEDICATIONS ORDERED WITH VERBAL UNDERSTANDING. ...</paragraph> Encounters Start Date/Time End Date/Time Encounter Type Admission Type Attending Clinicians Care Facility Care Department Encounter ID Discharge Date Discharge Status Discharge Condition Discharge Reason Percent Goals Met 2024-02-06 00:00:00 2024-06-04 00:00:00 Outpatient STARRTIFIC GUIDO COOK [facility] [id number] 50.00
--- OUTSIDE RECORDS SUMMARY | 2024-05-02 15:35 | XMS_ITS | Clinical Summary ---
Author Organization Unknown Care Team Providers Care Medical Artist Name Role Phone ZHEN OJEDA MD, KELLY Unavailable Unavailable JOELLE SANTOS, GUIDO Ochoa Unavailabl e Payers Payer Name Policy Type Policy Number Effective Date Expira tion Date MEDICARE - NGS IMELDA/MICHAELLE - PD [id number] Problems Condition Name Condition Details Condition Category [...] 25 mq 1200 2023-02 00:00: 00 Yes [id number] 1 TAB DAILY 1 TAB DAILY (route: BY MOUTH) Med Classific ation: ELECTROLY LEATHA/VITAM INS gabapentin 300 mg capsule 2023-02 00:00: 00 02-24 23:59 :00 No [id number] 300 capsule 3 TIMES A WEEK 300 capsule 3 TIMES A WEEK (route: oral) Med Classific ation: Central Nervous System Agents Glucosamine Chondroit Complx Advan 750 mg-100 mg-125 mg-1.65 mg tablet 2023-02 00:00: 00 02-24 23:59 :00 No [id number] 750 mg DAILY 750 mg DAILY (route: oral) Med Classific ation: Alternati ve Therapy lisinopril 2.5 mg tablet 2023-02 00:00: 00 Yes [id number] 2.5 mg DAILY 2.5 mg DAILY (route: oral) Med Classific ation: Cardiovas cular Therapy Agents montelukast 10 mg tablet 2023-02- 00:00: 00 Yes [id number] 10 mg BEDTIME 10 mg BEDTIME (route: oral) Med Classific ation: Respirato ry Therapy Agents prednisone 10 mg tablet 2023-02 00:00: 00 Yes [id number] 10 mg DAILY 10 mg DAILY (route: oral) Med Classific ation: Endocrine PreserVisio n AREDS 2 Plus Multivit 200 mcg-15 mcg-5 mg-1 mg capsule 2023-02- 00:00: 00 Yes [id number] 200 mcg DAILY 200 mcg DAILY (route: oral) Med Classific ation: Electroly te Balance-N utritiona l Products simvastatin 40 mg tablet 2023-02 00:00: 00 02-24 23:59 :00 No [id number] 14 mg BEDTIME 14 mg BEDTIME (route: oral) Med Classific ation: Cardiovas cular Therapy Agents terazosin 1 mg capsule 2023-02 00:00: 00 Yes [id number] 1 mg BEDTIME 1 mg BEDTIME (route: oral) Med Classific ation: Cardiovas cular Therapy Agents gabapentin 300 mg capsule 2023-02 00:00: 00 Yes [id number] 1 capsule 3 TIMES DAILY 1 capsule 3 TIMES DAILY (route: oral) Med Classific ation: Central Nervous System Agents simvastatin 40 mg tablet 2023-02 00:00: 00 Yes [id number] 1 tablet BEDTIME 1 tablet BEDTIME (route: oral) Med Classific ation: Cardiovas cular Therapy Agents SSD 1 % topical cream 04-29 00:00: 00 Yes [id number] Per instruc tions 2 TIMES DAILY Per [...] AWARENESS FOR SAFETY AND WILL NOTIFY CLINICAL OCTAVE BOARD RACKER AND PHYSICIAN/PROVIDER WITH ANY CHANGE IN CONDITION. [code = SKILLED NURSE WILL MAINTAIN SITUATIONAL AWARENESS FOR SAFETY AND WILL NOTIFY CLINICAL OCTAVE BOARD RACKER AND PHYSICIAN/PROVIDER WITH ANY CHANGE IN CONDITION.] Goal Patient Goal - NOT TO UPSET MY FAMILY Goal 2024-04-01 Patient Goal - NOT TO UPSET MY FAMILY Goal Provider Goal - A PLAN OF CARE WILL BE ESTABLISHED THAT MEETS PATIENT'S USP NEEDS AND INCLUDES PATIENT GOAL FOR HOME [...] IS NEW REFERRAL FOR HIM THIS THURSDAY [facility]. PATIENT CONTINUES TO USE PREDNISONE 19 MG DAILY AND GABAPENTIN 600 MG P.O. B.I.D. PER DOCTOR ABENA SILVA WHO IS HIS SUPERVISOR [employer] WHO RECENTLY INCREASED FOR PATIENT AT LAST [...] WITH ALL MEDICATIONS SELF MANAGED WITH MED HORSE TRADER. PATIENT'S SAFETY MAINTAINED THERE HAVE BEEN NO [...] 00:00:00 2024-06-04 00:00:00 Outpatient STARRTIFIC GUIDO COOK [facility] [id number] 50.00
--- OUTSIDE RECORDS SUMMARY | 2024-05-02 15:35 | XMS_ITS | Clinical Summary ---
Author Organization [facility], Address [address] [place] [address] [place] [address] Phone Care Team Providers Care Dairy Truck Driver Name Role Phone PhilhenriMachelle Fitzpatrick DO Primary [...] Visit [facility], [address] [address] Henrique Black MD [address] [place] [address] Health Maintenance Due Date Last Done Comments Pneumococcal Vaccine: 65+ Years (1 of 2 - PCV) 1951 Influenza Vaccine (#1) 2023 0, 12/24/2018, 11/08/2009, Additional history exists Hepatitis B Vaccine Aged Out No longe r eligible based on patient's age to complete this topic Insurance MEDICARE [facility] Care Teams Dairy Truck Driver Relationship Specialty Start Date End Date Machelle Bueno DO PCP - General Internal Medicine 01/13/22
== END 2024-05-02 14:54 | disposition home or self-care (01) ==
PROVIDERS: PCP Internal Medicine; Referring Provider Hospitalist; Visit Provider Nurse Practitioner Family
DX: M41.9 Scoliosis, unspecified (principal); M51.369 Other intervertebral disc degeneration, lumbar region without mention of lumbar back pain or lower extremity pain; M54.50 Low back pain, unspecified; G89.29 Other chronic pain; M54.16 Radiculopathy, lumbar region; M47.817 Spondylosis without myelopathy or radiculopathy, lumbosacral region
CPT/HCPCS: 99204; G2211

== ENCOUNTER → 2024-05-02 13:46 | Outpatient (BNVA) | payer MEDICARE, SELFPAY | PROVIDERS: PCP Internal Medicine; Referring Provider Hospitalist; Visit Provider Nurse Practitioner Family | DX: M51.360 Other intervertebral disc degeneration, lumbar region with discogenic back pain only (principal); M41.9 Scoliosis, unspecified; M54.16 Radiculopathy, lumbar region; M47.817 Spondylosis without myelopathy or radiculopathy, lumbosacral region; G89.29 Other chronic pain; R60.0 Localized edema; L97.419 Non-pressure chronic ulcer of right heel and midfoot with unspecified severity; L97.529 Non-pressure chronic ulcer of other part of left foot with unspecified severity | CPT/HCPCS: 99202 ==